=== PATIENT | female | born 1990 | race Asian ===

== ENCOUNTER 2023-10-26 03:47 | Inpatient (IN) | payer BC ==
[~2023-10-26] VITALS: Ht 165.1 cm; Wt 59.4 kg
[2023-10-26 04:00] VITALS: BP 99/61; PULSE 68; RESP 18; TEMP 97.8
[2023-10-26] MEDS ORDERED: CARBOPROST 250 MCG/ML AMP IM PRN (04:20)
[2023-10-26] MEDS ORDERED: NALBUPHINE 10 MG/ML AMP IVP PRN (04:20)
[2023-10-26] MEDS ORDERED: METHYLERGONOVINE 0.2 MG/ML AMP IM PRN ×2 (04:20→12:30)
[2023-10-26] MEDS ORDERED: ONDANSETRON 4 MG/2 ML VIAL IVP PRN ×2 (04:20→13:00)
[2023-10-26 05:30] LABS: BASOPHILS % (AUTO) 0.4 % (0.0-2.0); EOSINOPHILS # (AUTO) 0.3 K/uL (0-0.4); EOSINOPHILS % (AUTO) 3.2 % (0.0-4.0); HEMATOCRIT 39.1 % (36-48); HEMOGLOBIN 13.2 g/dL (12.0-16.0); LYMPHOCYTES # (AUTO) 1.7 K/uL (2.5-16.5); LYMPHOCYTES % (AUTO) 19.3 % (20.5-51.1); MEAN CORPUSCULAR HEMOGLOBIN 31 pg (27-31); MEAN CORPUSCULAR HGB CONC 34 g/dL (33-37); MONOCYTES # (AUTO) 0.6 K/uL (0.8-1.0); MONOCYTES % (AUTO) 6.9 % (1.7-9.3); NEUTROPHILS # (AUTO) 6.3 K/uL (1.8-7.7); NEUTROPHILS % (AUTO) 70.2 % (42.2-75.2); PLATELET COUNT (AUTO) 206 K/uL (140-450); RED CELL DISTRIBUTION WIDTH 14.3 % (11.6-13.7)
[2023-10-26] MEDS: LACTATED RINGERS 1,000 ML IV SCH (05:33)
[2023-10-26 05:44] LABS: INR 0.81 (0.8-1.2); PARTIAL THROMBOPLASTIN TIME 28.1 secs (22-35.6); PROTHROMBIN TIME 8.6 secs (10.8-13.4)
[2023-10-26 05:46] LABS: ALBUMIN 2.7 g/dL (3.4-5.0); ANION GAP 12.3 (8-16); CALCIUM 8.1 mg/dL (8.5-10.1); CARBON DIOXIDE 23.2 mmol/L (21-32); CREATININE 0.6 mg/dL (0.6-1.3); POTASSIUM 3.5 mmol/L (3.5-5.1); TOTAL BILIRUBIN 0.2 mg/dL (0.0-1.0); TOTAL PROTEIN, SERUM 7.1 g/dL (6.4-8.2)
[2023-10-26 05:55] LABS: APPEARANCE,URINE CLEAR (CLEAR); BILIRUBIN,URINE NEGATIVE (NEGATIVE); BLOOD, URINE NEGATIVE (NEGATIVE); COLOR,URINE YELLOW (YELLOW); LEUKOCYTE ESTERASE ,URINE NEGATIVE (NEGATIVE); NITRITE, URINE NEGATIVE (NEGATIVE); PH,URINE 6.5 (5.0-9.0); PROTEIN,URINE NEGATIVE (NEGATIVE); UGLUCOSE NEGATIVE (NEGATIVE); UROBILINOGEN,URINE 0.2 EU/dL (0.2 - 1)
[2023-10-26] MEDS ORDERED: CLINDAMYCIN 900 MG/6 ML VIAL IV ONE (05:58)
[2023-10-26] MEDS: CLINDAMYCIN 900 MG in DEXTROSE 5% 100 ML IV SCH (06:04)
[2023-10-26 06:08] LABS: AMPHETAMINE, URINE NEGATIVE ng/ml (NEG <=1000); BARBITURATE, URINE NEGATIVE ng/ml (NEG <=200); BENZODIAZEPINE, URINE NEGATIVE ng/mL (NEG <=200); CANNABINOID, URINE NEGATIVE ng/mL (NEG <=50); COCAINE, URINE NEGATIVE ng/mL (NEG <=300); OPIATE, URINE NEGATIVE ng/mL (NEG <=2000); PHENCYCLIDINE SCREEN,URINE NEGATIVE ng/mL (NEG <=25)
[2023-10-26] MEDS ORDERED: PREN-543 PO (07:08)
[2023-10-26] MEDS: TERBUTALINE 1 MG/ML VIAL SUBQ SCH (10:09)
[2023-10-26] MEDS ORDERED: MORPHINE PRES FREE 10 MG/10 ML AMP IV ONE (12:09)
[2023-10-26] MEDS ORDERED: TEMAZEPAM 15 MG CAP PO PRN (12:30)
[2023-10-26] MEDS ORDERED: oxyCODONE/APAP 5/325 MG 1 TAB TAB PO PRN (12:30)
[2023-10-26] MEDS ORDERED: OXYTOCIN 20 UNITS in LACTATED RINGERS 1,000 ML IV SCH (12:30)
[2023-10-26] MEDS ORDERED: diphenhydrAMINE 50 MG/ML VIAL IVP PRN (13:00)
[2023-10-26] MEDS ORDERED: MEPERIDINE 25 MG/ML SYR IVP PRN (13:00)
[2023-10-26] MEDS ORDERED: KETOROLAC 60 MG/2 ML VIAL IM PRN (13:00)
[2023-10-26] MEDS ORDERED: NALOXONE 0.4 MG/ML VIAL IVP PRN (13:00)
[2023-10-26] MEDS ORDERED: HYDROmorphone 1 MG/ML AMP IVP PRN (13:00)
[2023-10-26] MEDS: OXYTOCIN/0.9 % SODIUM CHLORIDE 500 ML IV SCH (13:37)
[2023-10-26] MEDS: DOCUSATE SOD/SENNA 50/8.6 MG 1 TAB PO SCH (20:57)
[2023-10-27] MEDS: OXYTOCIN/0.9 % SODIUM CHLORIDE 500 ML IV SCH (02:06)
[2023-10-27] MEDS: KETOROLAC 30 MG/ML VIAL IVP PRN (04:21)
[2023-10-27 06:53] LABS: BASOPHILS % (AUTO) 0.4 % (0.0-2.0); EOSINOPHILS # (AUTO) 0.1 K/uL (0-0.4); HEMATOCRIT 30.2 % (36-48); HEMOGLOBIN 10.3 g/dL (12.0-16.0); LYMPHOCYTES # (AUTO) 1.4 K/uL (2.5-16.5); LYMPHOCYTES % (AUTO) 10.6 % (20.5-51.1); MEAN CORPUSCULAR HEMOGLOBIN 31 pg (27-31); MEAN CORPUSCULAR HGB CONC 34 g/dL (33-37); MEAN CORPUSCULAR VOLUME 91.6 fL (80-94); MONOCYTES # (AUTO) 0.7 K/uL (0.8-1.0); MONOCYTES % (AUTO) 5.5 % (1.7-9.3); NEUTROPHILS # (AUTO) 10.6 K/uL (1.8-7.7); NEUTROPHILS % (AUTO) 82.5 % (42.2-75.2); PLATELET COUNT (AUTO) 157 K/uL (140-450); RED BLOOD CELL COUNT(AUTO) 3.29 MIL/uL (4.20-5.40); WHITE BLOOD COUNT (AUTO) 12.9 K/uL (4.8-10.8)
[2023-10-27] MEDS: IBUPROFEN 800 MG TAB PO PRN (09:40)
[2023-10-27] MEDS: SIMETHICONE 80 MG TAB.CHEW PO PRN (09:40)
[2023-10-27] MEDS: oxyCODONE/APAP 5/325 MG 1 TAB TAB PO PRN (14:19)
== END 2023-10-29 15:10 | disposition home or self-care (01) | DRG 787 ==
LOC: MLD 03:47 → MFCC 13:06
PROVIDERS: ADMIT Obstetrics & Gynecology; ATTEND Obstetrics & Gynecology
PROC: 10D00Z1 Extraction of Products of Conception, Low, Open Approach (ICD-10-PCS; principal; 2023-10-26 13:10)
DX: O34.211 Maternal care for low transverse scar from previous cesarean delivery (principal); O98.52 Other viral diseases complicating childbirth; Z37.0 Single live birth; Z3A.38 38 weeks gestation of pregnancy; B00.9 Herpesviral infection, unspecified
CPT/HCPCS: 36415; 51702; 80053; 80305; 81003; 85025; 85610; 85730; 86592; 86762; 86886; 86900; 86901; 87340; J1885; J2270; J2590; J3105; J3490; J7060